=== PATIENT | male | born 2000 | race Caucasian/White ===

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

== ENCOUNTER 2019-07-20 21:59 | Emergency (ER) | payer BC, OTHER ==
[2019-07-20 22:13] VITALS: BP 110/81; PULSE 69; RESP 18; TEMP 99
[2019-07-20] MEDS ORDERED: DIPH,PERTUS(ACELL)TETVAC-LF 0.5 ML VIAL IM ONE (22:17)
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
--- NOTE | 2019-07-20 22:37 | XR ---
EXAMINATION TYPE: XR hand complete LT DATE OF EXAM: 07/20/2019 COMPARISON: NONE HISTORY: Laceration. Pain. TECHNIQUE: 3 views FINDINGS: Metacarpals appear intact. I see no fracture nor dislocation. There is no sign of a radiopa que foreign body. Joint spaces are fairly normal. IMPRESSION: Negative left hand exam.
== END 2019-07-20 22:47 | disposition home or self-care (01) ==
LOC: EC 21:59
DX: S60.222A Contusion of left hand, initial encounter (principal); J45.909 Unspecified asthma, uncomplicated; F17.200 Nicotine dependence, unspecified, uncomplicated; Z88.0 Allergy status to penicillin; Z88.8 Allergy status to other drugs, medicaments and biological substances; Z91.018 Allergy to other foods; Z79.899 Other long term (current) drug therapy; W22.09XA Striking against other stationary object, initial encounter; Y93.89 Activity, other specified; Y92.009 Unspecified place in unspecified non-institutional (private) residence as the place of occurrence of the external cause; Z53.20 Procedure and treatment not carried out because of patient's decision for unspecified reasons
CPT/HCPCS: 99283

== ENCOUNTER 2019-08-12 19:57 | Emergency (ER) | payer BC ==
[2019-08-12 20:10] VITALS: BP 122/72; PULSE 85; RESP 18; TEMP 98.3
[2019-08-12] MEDS ORDERED: DIPH,PERTUS(ACELL)TETVAC-LF 0.5 ML VIAL IM ONE (20:21)
[2019-08-12] MEDS ORDERED: LIDOCAINE 1% INJ 10MG/ML (20 ML MDV) SQ ONE (20:21)
--- NOTE | 2019-08-12 21:02 | ED ---
Wound/Laceration HPI - General Chief Complaint: Wound/Laceration Stated Complaint: Leg laceration Time Seen by Provider: 08/12/19 20:12 Source: patient, family Mode of arrival: ambulatory Limitations: no limitations - History of Present Illness Initial Comments: 19-year-old male patient presents to the emergency department today for evaluation of laceration to the left thigh. Patient states he was opening supplies with a utility knife when he slipped and cut his leg. Denies any difficulty with ambulation. Denies significant pain to the area. Is unsure when his last tetanus vaccine was given. Denies taking any medication for his symptoms. Denies any use of anticoagulants or antiplatelet medications. Patient denies any headache, neck pain, back pain, chest pain, shortness of breath, dizziness, weakness, abdominal pain, nausea, vomiting, or difficulties with bowel movements or urination. - Related Data Home Medications Medication Instructions Recorded Confirmed Albuterol Sulfate [Proair Hfa] 1 - 2 puff INHALATION Q4HR PRN 09/21/18 08/12/19 LORazepam [Ativan] 0.5 mg PO HS PRN 08/12/19 08/12/19 Allergies Allergy/AdvReac Type Severity Reaction Status Date / Time flaxseed Allergy Unknown Verified 08/12/19 20:09 Penicillins Allergy Anaphylaxis Verified 08/12/19 20:09 sertraline [From Zoloft] Allergy Unknown Verified 08/12/19 20:09 Review of Systems ROS Statement: Those systems with pertinent positive or pertinent negative responses have been documented in the HPI. ROS Other: All systems not noted in ROS Statement are negative. Past Medical History Past Medical History: Asthma History of Any Multi-Drug Resistant Organisms: None Reported Past Surgical History: Adenoidectomy Past Psychological History: Anxiety Smoking Status: Current every day smoker Past Alcohol Use History: None Reported Past Drug Use History: Marijuana General Exam Limitations: no limitations General appearance: alert, in no apparent distress, other (Physical well- developed, well-nourished adult male patient in no acute distress. Vital signs upon presentation are temperature 98.3F, pulse 85, respirations 18, blood pressure 122/72, pulse ox 96% on room air.) Respiratory exam: Present: normal lung sounds bilaterally. Absent: respiratory distress, wheezes, rales, rhonchi, stridor Cardiovascular Exam: Present: regular rate, normal rhythm, normal heart sounds. Absent: systolic murmur, diastolic murmur, rubs, gallop, clicks Extremities exam: Present: full ROM, normal capillary refill, other (There is 3 cm laceration noted to the left anterior thigh. There is mild bleeding noted. Exposure of adipose tissue. Remainder of skin is pink, warm, dry. Cap refills less than 3 seconds. Pedal and posttibial pulses are 2+ and equal bilaterally.). Absent: normal inspection, tenderness, pedal edema, joint swelling, calf tenderness Neurological exam: Present: alert, oriented X3, CN II-XII intact Psychiatric exam: Present: normal affect, normal mood Skin exam: Present: warm, dry, intact, normal color. Absent: rash Course Vital Signs 08/12/19 20:06 Temperature 98.3 F Pulse Rate 85 Respiratory 18 Rate Blood Pressure 122/72 O2 Sat by Pulse 96 Oximetry Procedures - Laceration Laceration #1 Consent Obtained: verbal consent Indication: laceration Site: lower extremity Size (cm): 3 Depth: simple, single layer Anesthetic Used: lidocaine 1% Anesthesia Technique: local infiltration Amount (mls): 8 Pre-repair: irrigated extensively Type of Sutures: nylon Size of Sutures: 4-0 Number of Sutures: 4 Technique: simple, interrupted Patient Tolerated Procedure: well, no complications Medical Decision Making - Medical Decision Making 19-year-old male patient presents to the emergency department today for evaluation of laceration to the left lateral thigh. Physical examination did reveal 3 cm laceration with exposure of adipose tissue. No muscle or tendon exposure was noted. Laceration was repaired as documented. Be discharged to return in 10 days for suture removal. Educated regarding signs or symptoms of infection. He is instructed to follow-up with the primary care physician for recheck in 1-2 days. Return parameters were discussed in detail. He verbalizes understanding and agrees with this plan. Disposition Clinical Impression: Laceration of left thigh Disposition: HOME SELF-CARE Condition: Good Instructions (If sedation given, give patient instructions): Care For Your Stitches (ED), Laceration (ED) Additional Instructions: Keep wound clean and dry. Cleanse twice daily with warm water and antibacterial soap. Monitor for signs or symptoms of infection including but not limited to redness, swelling, drainage of pus, fever, or chills. Return in 10 days to have the stitches removed. Follow-up through primary care physician for recheck in 1-2 days. Return to the emergency department for any other new, worsening, or concerning symptoms. Is patient prescribed a controlled substance at d/c from ED?: No Referrals: Elvia Lebron MD [Primary Care Provider] - 1-2 days Time of Disposition: 21:02
== END 2019-08-12 21:10 | disposition home or self-care (01) ==
LOC: EC 19:57
DX: S71.112A Laceration without foreign body, left thigh, initial encounter (principal); J45.909 Unspecified asthma, uncomplicated; F17.200 Nicotine dependence, unspecified, uncomplicated; Z88.0 Allergy status to penicillin; Z88.8 Allergy status to other drugs, medicaments and biological substances; Z91.018 Allergy to other foods; Z79.899 Other long term (current) drug therapy; Z23 Encounter for immunization; W26.0XXA Contact with knife, initial encounter; Y93.89 Activity, other specified; Y92.009 Unspecified place in unspecified non-institutional (private) residence as the place of occurrence of the external cause
CPT/HCPCS: 90715; 99282; 12002; 90471; J2001

== ENCOUNTER → 2019-09-07 | Outpatient (CLI) | payer BC ==
--- NOTE | 2019-09-07 15:28 | CT ---
EXAMINATION TYPE: CT abdomen pelvis w con DATE OF EXAM: 09/07/2019 COMPARISON: NONE HISTORY: 19-year-old male RLQ pain TECHNIQUE: Contiguous axial scanning of the abdomen and pelvis following administration of 100 ml Iso hayley 300 IV contrast. Delayed images through the kidneys and coronal/sagittal reconstructions perform ed. CT DLP: 468.4 mGycm Automated exposure control for dose reduction was used. FINDINGS: Heart normal size without pericardial effusion. Lung bases clear without pleural effusion. No focal liver lesion or biliary ductal dilatation. Portal venous system is patent. Gallbladder, adrenal glands, kidneys, spleen, and pancreas appear within normal limits. Numerous scattered prominent mesenteric lymph nodes throughout the abdomen measuring up to 9 mm. No r etroperitoneal lymphadenopathy. Circumaortic left renal vein. No dilated small bowel, free fluid, or free air. Normal appendix. Mild stool within the right side of the colon. No pericolonic inflammatory change. Bladder urine distended. No abnormal fluid collection in the pelvis or pelvic lymphadenopathy. Bones: Diffuse disc bulge at L5-S1. IMPRESSION: 1. NORMAL APPENDIX. 2. NUMEROUS PROMINENT MESENTERIC LYMPH NODES THROUGHOUT THE ABDOMEN MEASURING UP TO 9 MM. CORRELATE F OR MESENTERIC ADENITIS.
== END | disposition home or self-care (01) ==
LOC: RADCTMAIN 13:10
PROVIDERS: ATTEND Internal Medicine
DX: R10.31 Right lower quadrant pain (principal); Z88.0 Allergy status to penicillin; Z88.8 Allergy status to other drugs, medicaments and biological substances
CPT/HCPCS: 74177; Q9967; 80053; 85025

== ENCOUNTER 2021-06-26 00:08 | Emergency (ER) | payer BC ==
--- NOTE | 2021-06-26 09:50 | XR ---
EXAM: XR Chest, 1 View CLINICAL HISTORY: SOB Cough TECHNIQUE: Frontal view of the chest. COMPARISON: No relevant prior studies available. FINDINGS: Lungs: Slight central peribronchial cuffing may represent mild bronchitis. No acute focal infiltrate is seen. Pleural space: Unremarkable. No pneumothorax. Heart: Unremarkable. No cardiomegaly. Mediastinum: Unremarkable. Bones/joints: Unremarkable. IMPRESSION: Slight central peribronchial cuffing may represent mild bronchitis. No acute focal infiltrate is seen.
== END 2021-06-26 05:12 | disposition home or self-care (01) ==
LOC: EC 00:08
DX: J20.9 Acute bronchitis, unspecified (principal); Z20.822 Contact with and (suspected) exposure to COVID-19
CPT/HCPCS: 71045; 87635; 99283

== ENCOUNTER 2021-07-15 23:20 | Emergency (ER) | payer BC ==
[2021-07-15 23:25] VITALS: BP 146/80; TEMP 97.8
[2021-07-15] MEDS ORDERED: IPRATROPIUM-ALBUTEROL 3 ML NEB INHALATION STA (23:50)
[2021-07-15] MEDS ORDERED: methylPREDNISolone SOD SUCCI 125 MG/2 ML VIAL IM ONE (23:50)
--- NOTE | 2021-07-16 00:16 | ED ---
Allergic Reaction HPI - General Chief complaint: Allergic Reaction Stated complaint: Allergic Reaction Time Seen by Provider: 07/15/21 23:46 Source: patient, RN notes reviewed Mode of arrival: ambulatory Limitations: no limitations - History of Present Illness Initial Comments: Patient is a 20-year-old male that presents to the emergency department comp laining of ALLERGIC reaction. He notes that he recently moved into a new house his brother bottom some pudding shots. He notes he took those pudding shots. Patient notes that he took 2 servings of Benadryl prior to arrival and it seemed to clear up symptoms. Patient notes that initially he felt like his breathing was a little bit more difficult. Patient notes he is asthmatic. He notes that he feels much better while sitting in bed during the exam interview. He denied chest pain headache nausea vomiting diarrhea constipation fever fatigue chills difficulty swallowing breathing. - Related Data Home Medications Medication Instructions Recorded Confirmed Albuterol Sulfate [Proair Hfa] 1 - 2 puff INHALATION Q4HR PRN 09/21/18 08/12/19 LORazepam [Ativan] 0.5 mg PO HS PRN 08/12/19 08/12/19 Allergies Allergy/AdvReac Type Severity Reaction Status Date / Time flaxseed Allergy Unknown Verified 07/15/21 23:25 Penicillins Allergy Anaphylaxis Verified 07/15/21 23:25 sertraline [From Zoloft] Allergy Unknown Verified 07/15/21 23:25 Review of Systems ROS Statement: Those systems with pertinent positive or pertinent negative responses have been documented in the HPI. ROS Other: All systems not noted in ROS Statement are negative. Past Medical History Past Medical History: Asthma History of Any Multi-Drug Resistant Organisms: None Reported Past Surgical History: Adenoidectomy Past Psychological History: Anxiety Smoking Status: Vaper Past Alcohol Use History: None Reported Past Drug Use History: Marijuana General Exam Limitations: no limitations General appearance: alert, in no apparent distress Head exam: Present: atraumatic, normocephalic, normal inspection Eye exam: Present: normal appearance, PERRL, EOMI. Absent: scleral icterus, conjunctival injection, periorbital swelling ENT exam: Present: normal exam, mucous membranes moist Neck exam: Present: normal inspection Respiratory exam: Present: normal lung sounds bilaterally. Absent: respiratory distress, wheezes, rales, rhonchi, stridor Cardiovascular Exam: Present: regular rate, normal rhythm, normal heart sounds. Absent: systolic murmur, diastolic murmur, rubs, gallop, clicks GI/Abdominal exam: Present: soft, normal bowel sounds. Absent: distended, tenderness, guarding, rebound, rigid Extremities exam: Present: normal inspection, full ROM, normal capillary refill. Absent: tenderness, pedal edema, joint swelling, calf tenderness Neurological exam: Present: alert, oriented X3 Psychiatric exam: Present: normal affect, normal mood Skin exam: Present: warm, dry, intact, normal color. Absent: rash Course Vital Signs 07/15/21 23:22 Temperature 97.8 F Pulse Rate 89 Respiratory 18 Rate Blood Pressure 146/80 O2 Sat by Pulse 98 Oximetry Medical Decision Making - Medical Decision Making 20-year-old male complaining of ALLERGIC reaction, took Benadryl prior to arrival. Upon evaluation patient didn't appear to be well, no difficulty breathing or swallowing. 125 mg of Solu-Medrol, DuoNeb ordered. Patient is able to discharge home after medications. Case discussed with Dr. Meléndez. Vital signs are stable Disposition Clinical Impression: Allergic reaction Disposition: HOME SELF-CARE Condition: Stable Instructions (If sedation given, give patient instructions): General Allergic Reaction (ED) Additional Instructions: Please return to the Emergency Department if symptoms worsen or any other concerns. Follow-up with primary care in 1-2 days. Continue take Benadryl as directed on the box for continuing symptoms. Is patient prescribed a controlled substance at d/c from ED?: No Referrals: Elvia Lebron MD [Primary Care Provider] - 1-2 days Time of Disposition: 00:16
[2021-07-16 00:29] VITALS: PULSE 88
[2021-07-16 00:46] VITALS: RESP 24
== END 2021-07-16 00:52 | disposition home or self-care (01) ==
LOC: EC 23:20
DX: T78.40XA Allergy, unspecified, initial encounter (principal); J45.909 Unspecified asthma, uncomplicated; F17.290 Nicotine dependence, other tobacco product, uncomplicated; F12.90 Cannabis use, unspecified, uncomplicated; Z79.51 Long term (current) use of inhaled steroids; Z79.899 Other long term (current) drug therapy
CPT/HCPCS: 94640; 99283; 96372; J2930